=== PATIENT | female | born 1955 | race Caucasian/White ===

== ENCOUNTER 2016-09-02 22:08 | Inpatient (IN) | payer MEDICAID ==
--- NOTE | ~2016-09-02 | PN ---
Unit #: [id number] #: [id number] Patient: LESLIE ACOSTA [id number] [facility] [address] [place] [address] [id number] MR#: [id number] NAME: LESLIE ACOSTA. ROOM: P115 Age: 61 Sex: F Admission Date: 09/02/2016 : 1955 Attending Physician: Adriane Tse M.D. Admitting Physician: Adriane Tse M.D. Primary Care Physician: Primary Care Physician Mona SCHROEDER PROGRESS NOTES DATE 09/04/2016 DISCUSSION Ms. Acosta is a 61-year-old white female who was seen today and chart was reviewed and case was discussed with the staff. She has been anxious, withdrawn and was seen to be seclusive to herself. Meanwhile, she has been taking medications and tolerating them fairly well though has not been able to show a therapeutic response. MENTAL STATUS EXAMINATION Middle-aged white female who was casually dressed with fair personal hygiene and appears to be in no acute distress or discomfort. She was awake and alert on interaction with intact orientation. Her mood was anxious and depressed with congruent affect. She reports having suicidal ideation but denies any homicidal ideations. Her insight and judgement remains slightly impaired. TREATMENT PLAN 1. Will continue on current medications and treatment protocol. Will monitor her response to the medications and make further adjustments as needed. 2. Will continue to follow up. Dictated by... Loi Adhikari/suma TD: 09/04/2016 17:19 JOB #: [id number] Unit #: [id number] #: [id number] Patient: LESLIE ACOSTA ELDA PROGRESS NOTES X Adriane Tse MD PROGRESS NOTE
--- NOTE | ~2016-09-02 | PN ---
Unit #: [id number] #: [id number] Patient: LESLIE ACOSTA [id number] [facility] [address] [place] [address] [id number] I MR#: [id number] NAME: LESLIE ACOSTA ROOM: 15 Age: 61 Sex: F Admission Date: 09/02/2016 : 1955 Attending Physician: Adriane Tse M.D. Admitting Physician: Adriane Tse M.D. Primary Care Physician: Primary Care Physician Mona SCHROEDER PROGRESS NOTES DATE OF SERVICE: 09/08/2016 SUBJECTIVE Ms. Acosta was seen today and chart was reviewed, and case was discussed with the staff. She reports doing somewhat better and has been showing improvement in her depression and anxiety. Meanwhile, she has been cooperative with treatment recommendation and has been taking the medications and tolerating them fairly well with no reported side effects. MENTAL STATUS EXAMINATION Middle-aged white female who was casually dressed with personal hygiene, appears to be in no acute distress or discomfort. She was awake alert on interaction with intact orientation. Her mood was anxious and depressed with a congruent affect. Her speech was slow and goal directed. She denies any suicidal or homicidal ideations and also denies any auditory or visual hallucinations. Her insight and judgment remain slightly impaired. TREATMENT PLAN We will continue on her current medications and treatment protocol. We will monitor her response to the medications and make further adjustments as needed. We will consider discharge plan tomorrow. The patient keeps on making progress. Dictated by... Loi Adhikari/chetan TD: 09/09/2016 00:37 JOB #: [id number] [facility] PROGRESS NOTES X Adriane Tse MD PROGRESS NOTE
--- NOTE | ~2016-09-02 | PN ---
Unit #: [id number] #: [id number] Patient: LESLIE ACOSTA [id number] [facility] [address] [place] [address] [id number] I MR#: [id number] NAME: LESLIE ACOSTA ROOM: P115 Age: 61 Sex: F Admission Date: 09/02/2016 : 1955 Attending Physician: Adriane sTe M.D. Admitting Physician: Adriane Tse M.D. Primary Care Physician: Primary Care Physician Mona STOVALL NOTES DATE September 05, 2016 DISCUSSION Ms. Acosta is a 61-year-old white female, who was seen today and chart was reviewed and the case was discussed with the staff. She was anxious and withdrawn but has not shown any agitation or aggression and has been seclusive to herself and has been exhibiting significant depressive symptoms. MENTAL STATUS EXAMINATION Middle-aged white female, who was casually dressed with fair personal hygiene and appears to be in no acute distress or discomfort. She was awake and alert on interaction with intact orientation. Her mood was anxious with a congruent affect. The patient has been having suicidal ideations but denies any homicidal ideations. Her insight and judgment remain slightly impaired. TREATMENT PLAN We will continue her on her current medications and treatment protocol, and will monitor her response, and make further adjustments as needed. Dictated by... Loi Adhikari/kathi TD: 09/07/2016 12:32 JOB #: [id number] [facility] PROGRESS NOTES X Adriane Tse MD PROGRESS NOTE
--- NOTE | ~2016-09-02 | PN ---
Unit #: [id number] #: [id number] Patient: LESLIE ACOSTA [id number] [facility] [address] [place] [address] [id number] I MR#: [id number] NAME: LESLIE ACOSTA. ROOM: 15 Age: 61 Sex: F Admission Date: 09/02/2016 : 1955 Attending Physician: Adriane Tse M.D. Admitting Physician: Adriane Tse M.D. Primary Care Physician: Primary Care Physician Mona SCHROEDER PROGRESS NOTES DATE OF SERVICE: 09/07/2016 SUBJECTIVE Ms. Acosta is a 61-year-old white female who was seen today and chart was reviewed, and case was discussed with the staff. She has been anxious, withdrawn, and rather seclusive to herself. Meanwhile, she has been cooperative with treatment recommendations and has been taking the medications and tolerating them fairly well with no reported side effects. MENTAL STATUS EXAMINATION An elderly white female who was casually dressed with fair personal hygiene, appears to be in no acute distress or discomfort. She was awake and alert with impaired attention and concentration. Her mood was anxious with a congruent affect. Her speech was slow and goal directed. She denies any suicidal or homicidal ideations, and also denies any auditory or visual hallucinations. Her insight and judgment remain slightly impaired. TREATMENT PLAN 1. We will continue on her current medications and treatment protocol. We will monitor her response to medications and make further adjustments as needed. 2. We will continue to follow up. Dictated by... Loi Adhikari/chetan TD: 09/08/2016 05:28 JOB #: [id number] [facility] PROGRESS NOTES X Adriane Tse MD PROGRESS NOTE
--- NOTE | ~2016-09-02 | DS ---
Unit #: [id number] #: [id number] Patient: [facility]COSTA [id number] [facility] [address] [place] [address] [id number] I MR#: [id number] NAME: LESLIE ACOSTA ROOM: 15 Age: 61 Sex: F Admission Date: 09/02/2016 : 1955 Discharge Date: 09/10/2016 Attending Physician: Adriane Tse M.D. Primary Care Physician: Primary Care Physician No DISCHARGE SUMMARY IDENTIFYING DATA Ms. Acosta is a 61-year-old white female who is known to us from previous encounter, and is resident of [place], [place] and was self-referred to the hospital. DISCHARGE DIAGNOSES Psychiatric: Major depressive disorder, recurrent, moderate, without psychotic features. Medical: Chronic obstructive pulmonary disease, history of atrial fibrillation. Stressors: Moderate psychosocial stressors. HISTORY OF PRESENT ILLNESS Please see initial psychiatric evaluation for details. PAST PSYCHIATRIC HISTORY Please see initial psychiatric evaluation for details. PAST MEDICAL HISTORY Please see initial psychiatric evaluation for details. HOSPITAL COURSE The [facility] and was oriented to the hospital environment. Routine p.r.n. medications were initiated, and she was started back on her home medications. Medications were adjusted and Effexor was increased to 75 mg b.i.d. and Seroquel was increased to 50 mg at bedtime and she was closely monitored. She was taking medications regularly and was tolerating them fairly well and was able to show a decent and therapeutic response with improvement in depression and anxiety and was willing to continue treatment on an outpatient basis and was denying any suicidal ideations, intent, or plan and was not seen to be danger to self or anyone else, and as such, it was decided that she will be discharged home and will continue treatment on an outpatient basis. DISCHARGE MEDICATIONS Effexor XR 75 mg b.i.d. for depression and Seroquel 50 mg at bedtime for depression. DISCHARGE CONDITION Stable. PROGNOSIS Fair. Unit #: [id number] #: [id number] Patient: LESLIE ACOSTA Dictated by... Loi Adhikari/chetan TD: 09/09/2016 07:01 JOB #: [id number] DISCHARGE SUMMARY X Adriane Tse MD DISCHARGE SUMMARY
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
--- NOTE | ~2016-09-02 | CR63 ---
[facility] A Service of [facility] RADIOLOGY TEXT RESULTS PATIENT: LESLIE ACOSTA LOCATION: [facility] : 55 UNIT #: [id number] AGE: [address]: Adriane Tse MD SEX: F ORDER DR: [id number] [facility] [address] [facility] [place], [place] [address] [id number] I MR#: [id number] Acc #: [id number] NAME: LESLIE ACOSTA. : 1955 SEX: F STUDY DATE/TIME: 09/09/2016 18:06 UNIT: [facility] ROOM: [facility] STUDY DESCRIPTION: CR Chest 2 View Attending Physician: Adriane Tse M.D. Ordering Physician: Adriane Tse M.D. Primary Care Physician: Primary Care Physician No MEDICAL IMAGING REPORT This report is preliminary unless electronic signature is present EXAM PA and lateral chest. 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 Currently asymptomatic. Pacemaker in place. TB precautions. COMPARISON PA lateral chest radiograph 08/10/2016. FINDINGS Chronic linear scarring in the right base. No acute airspace disease. Right chest wall pacemaker AND leads appear stable. No pleural effusion or pneumothorax. Heart size is stable AND within normal limits. IMPRESSION Chronic right basilar scarring. No acute chest findings or significant change since 08/10/2016. Dictated by... Rosie Jernigan M.D. THIS IS AN ELECTRONICALLY VERIFIED REPORT Rosie Jernigan M.D. at 09/10/2016 2:42 PM JENA/shahriar TD: 09/09/2016 23:29 JOB #: [id number] [facility] A Service [facility] RADIOLOGY TEXT RESULTS PATIENT: LESLIE ACOSTA LOCATION: [facility] : 55 UNIT #: [id number] AGE: [address]: Adriane Tse MD SEX: F ORDER DR: MEDICAL IMAGING REPORT COPY
--- NOTE | ~2016-09-02 | HP ---
Unit #: [id number] #: [id number] Patient: LESLIE ACOSTA [id number] [facility] [address] [place] [address] [id number] MR#: [id number] NAME: LESLIE ACOSTA. ROOM: P115 Age: 61 Sex: F Admission Date: 09/02/2016 : 1955 Attending Physician: Adriane Tse M.D. Admitting Physician: Adriane Tse M.D. Primary Care Physician: Primary Care Physician No HISTORY AND PHYSICAL HISTORY OF PRESENT ILLNESS Leslie is a 61 year old, admitted to [address] [place] [address] with depression and verbalizing wanting to hurt herself. The patient was seen and history and physical, dated 08/06/2016, was reviewed. This is current. No changes. Please see history and physical, dated 08/06/2016. Dictated by... Maria L Lewis P.A.-C. for Loi Mustafa/kathi TD: 09/07/2016 12:17 JOB #: [id number] HISTORY AND PHYSICAL X Maria L Lewis HISTORY AND PHYSICAL
--- NOTE | ~2016-09-02 | PN ---
Unit #: [id number] #: [id number] Patient: LESLIE ACOSTA [id number] [facility] [address] [place] [address] [id number] I MR#: [id number] NAME: LESLIE ACOSTA ROOM: P115 Age: 61 Sex: F Admission Date: 09/02/2016 : 1955 Attending Physician: Adriane Tse M.D. Admitting Physician: Adriane Tse M.D. Primary Care Physician: Primary Care Physician Mona STOVALL NOTES DATE 09/06/2016 DISCUSSION Ms. Acosta is a 61-year-old white female who was seen today and chart was reviewed and case was discussed with the staff. She has been anxious, withdrawn and rather seclusive to herself. Meanwhile, she has been taking the medications and tolerating them fairly well with no reported side effects. MENTAL STATUS EXAMINATION Middle-aged white female who was casually dressed with fair personal hygiene, appears to be in no acute distress or discomfort. She was awake and alert with impaired attention and concentration. Her mood was anxious with congruent affect. She denies any suicidal or homicidal ideations. Her insight and judgement remains slightly impaired. TREATMENT PLAN We will continue her on her current medications and treatment protocol. We will monitor her response to the medication and make further adjustments as needed. Dictated by... Loi Adhikari/sebastien TD: 09/08/2016 03:09 JOB #: [id number] [facility] PROGRESS NOTES X Adriane Tse MD PROGRESS NOTE
[~2016-09-02 22:08] MED LIST: ALBUTEROL MININEB NEB; ASPIRIN PO; BAYER ASPIRIN325 M1 PO; BENADRYL ALLERG25 MG PO; CARAFATE PO; CIPRO PO; CLARITHROMYCIN500 MG PO; COLACE PO; COUMADIN7.5 MG PO; DOXYCYCLINE PO; FERROUS SULFATE PO; FLAGYL PO; LASIX PO; LOPRESSOR PO; LORTAB 2.5/5001 TAB PO; NEURONTIN800 MG PO; NEXIUM PO; NIFEREX-150150 MG PO; OMEPRAZOLE40 MG PO; PHENERGAN PO; PHENERGAN12.5 MG PO; PHENERGAN25 M1 PO; PHENERGAN25 MG PO; PREVACID PO; PROTONIX PO; PULMICORT200 MCG/AE NEB; REGLAN PO; RISPERDAL1 M1 PO; RISPERIDONE PO; SMZ/TMP DS 800/160; TAGAMET PO; VALIUM10 MG PO; VICODIN 5/1 TAB 5/50 PO; ZANTAC150 MG PO
[2016-09-03 09:44] LABS: URINE APPEARANCE CLEAR; URINE BILIRUBIN NEG (NEG); URINE BLOOD NEG (NEG); URINE COLOR YELLOW; URINE GLUCOSE NEG (NEG); URINE KETONE NEG (NEG); URINE LEUKOCYTE ESTERASE 2+ (NEG); URINE NITRATE NEG (NEG); URINE PH 7.5 (5-8); URINE PROTEIN NEG (NEG); URINE SPECIFIC GRAVITY 1.017 (1.003-1.035)
[2016-09-03 09:47] LABS: URBCS1 AUWI 0-2 /[HPF] (0-2); URINE BACTERIA AUWI NEG (NEGATIVE); URINE SQUAMOUS EPITHELIAL CELL FEW /[HPF]
[2016-09-03 10:20] LABS: AMPHETAMINE NEG (NEG); BARBITURATES NEG (NEG); BENZODIAZEPINES NEG (NEG); COCAINE NEG (NEG); MARIJUANA NEG (NEG); OPIATES NEG (NEG); TRICYCLIC ANTIDEPRESSANTS POS (NEG); U METHADONE NEG (NEG)
[2016-09-04 12:30] LABS: BASOPHIL% 0.3 % (0-2.5); EOSINOPHIL# 0.1 X10e3 (0-0.7); EOSINOPHIL% 2.2 % (0.0-7.0); HEMATOCRIT 39.2 % (35.0-45.0); HEMOGLOBIN 12.2 gm/dL (12.0-16.0); LYMPHOCYTE# 1.7 X10e3 (1.0-3.5); LYMPHOCYTE% 32.6 % (17.0-45.0); MEAN CELL VOLUME 83.1 FL (83-96); MEAN CORPUSCULAR HEMOGLOBIN 25.9 PG (28-34); MEAN CORPUSCULAR HGB CONC 31.1 g/dL (30-36); MEAN PLATELET VOLUME 8.3 FL (6.5-11.5); MONOCYTE# 0.5 X10e3 (0-1.0); NEUTROPHIL% 55.9 % (40-75); PLATELET COUNT 302 X10e3 (140-420); RED BLOOD COUNT 4.71 X10e (3.90-5.30); RED CELL DISTRIBUTION WIDTH 20.5 % (11.0-15.5); WHITE BLOOD COUNT 5.3 X10e3 (4.0-10.5)
[2016-09-04 12:39] LABS: DIFF IND NO
[2016-09-04 12:45] LABS: ALBUMIN SERUM 3.4 g/dL (3.5-5.0); ALKALINE PHOSPHATASE 86 U/L (32-92); ALT (SGPT) 27 U/L (10-40); AST (SGOT) 23 U/L (10-42); BILIRUBIN,TOTAL 0.5 mg/dL (0.2-2.0); BLOOD UREA NITROGEN 17 mg/dL (9-23); BUN/CREATININE RATIO 21.25; CALCIUM SERUM 8.9 mg/dL (8.4-10.2); CARBON DIOXIDE 27 mmol/L (22-31); CHLORIDE 101 mmol/L (100-111); CREATININE SERUM 0.8 mg/dL (0.6-1.4); DEPAKENE (VALPROIC ACID) 22 ug/mL (50-125); GLOM FILT RATE Estimated ABOVE60 mL/min (>60); GLUCOSE FASTING 135 mg/dL (70-110); POTASSIUM 4.6 mmol/L (3.5-5.1); SODIUM 136 mmol/L (135-145)
[2016-09-04 12:53] LABS: THYROID STIMULATING HORMONE 7.31 uIU/ml (0.34-5.60)
[2016-09-04 13:00] LABS: FREE THYROXIN (T4) 0.64 ng/dL (0.58-1.64)
== END 2016-09-10 14:00 | disposition home or self-care (01) | DRG 885 ==
LOC: P2S 22:08 → P1S 09-03 14:50
PROVIDERS: Psychiatry & Neurology Psychiatry
DX: F33.9 Major depressive disorder, recurrent, unspecified (principal); I48.91 Unspecified atrial fibrillation; J44.9 Chronic obstructive pulmonary disease, unspecified
CPT/HCPCS: 71020; 80053; 80164; 80307; 81003; 84439; 84443; 85025